=== PATIENT | female | born 1980 | race Caucasian/White ===

== ENCOUNTER 2017-04-15 10:35 | Emergency (ER) | payer OTHER ==
[2017-04-15 14:09] VITALS: BP 131/77
--- NOTE | 2017-04-15 15:16 | UC ---
Miko Tejada Stephanie, scribed for Jing Lock MD on 04/15/17 at 1339 . FLU HPI - HPI Summary HPI Summary: The pt is a 37 y/o F presenting to with decreased energy that began on 2017. Symptoms include productive cough (04/14/17), body aches, WINTER, fever, subjective chills and sore throat. The pt denies getting her influenza vaccine this season. Has not smoked over the last couple days. No GI issues perse. No rash. Works with the public. - History of Current Complaint Chief Complaint: UCGeneralIllness Stated Complaint: CONGESTION BODYACHES COUGH Time Seen by Provider: 04/15/17 13:26 Hx Obtained From: Patient Hx Last Menstrual Period: 04/12/17 ?: No Onset/Duration: Gradual Onset, Lasting Days - 2, Still Present Severity Currently: Moderate Pain Intensity: 4 Pain Scale Used: 0-10 Numeric Associated Signs & Symptoms: Positive: Fever, Myalgia, Cough, Sore Throat, Headache - Allergy/Home Medications Allergies/Adverse Reactions: Allergies Allergy/AdvReac Type Severity Reaction Status Date / Time No Known Allergies Allergy Verified 04/15/17 11:31 Home Medications: Home Medications Ibuprofen [Ibuprofen 200 MG] 800 mg PO Q8HR PRN 04/15/17 [History Confirmed 05/01] PMH/Surg Hx/FS Hx/Imm Hx Previously Healthy: Yes - Denies past medical hx. - Surgical History Surgical History: Yes Surgery Procedure, Year, and Place: Tubal Ligation - Family History Known Family History: Positive: Diabetes - Social History Occupation: Employed Part-time Lives: Alone Alcohol Use: None Substance Use Type: None Smoking Status (MU): Heavy Every Day Tobacco Smoker Amount Used/How Often: 1ppd Household Exposure Type: Cigarettes Review of Systems Constitutional: Fatigue, Other - see HPI Skin: Negative Eyes: Negative ENT: Sore Throat, Nasal Discharge, Sinus Congestion, Other - see HPIs Respiratory: Other - ee HPI Cardiovascular: Negative Gastrointestinal: Negative Genitourinary: Negative Motor: Negative Neurovascular: Negative Musculoskeletal: Other: - see HPI Neurological: Other - see HPI Psychological: Negative Is Patient Immunocompromised?: No All Other Systems Reviewed And Are Negative: Yes Physical Exam Triage Information Reviewed: Yes Appearance: Well-Nourished - sitting up. Looks tired. Non-toxic general appearance. Vital Signs: Initial Vital Signs Temp 100.9 F 04/15/17 11:27 Pulse 98 04/15/17 11:27 Resp 18 04/15/17 11:27 BP 152/86 04/15/17 11:27 Pulse Ox 100 04/15/17 11:27 Vital Signs Reviewed: Yes - Additional Comments Appearance: Well-Nourished Eye Exam: Normal ENT Exam: white dot in the back of throat R side Neck: Normal, No adenopathy appreciated Respiratory Exam: no dyspnea, no tachypnea, normal respiratory rate, Rhonchorous cough. Expiratory wheezes upon stress. Chest non-tender, Lungs clear, Normal breath sounds, No respiratory distress, No accessory muscle use Cardiovascular Exam: Normal Cardiovascular: Heart rate regular, good general skin color, good capillary refill Abdominal Exam: Normal Abdomen Description: Nontender, No Organomegaly, Soft Bowel Sounds: Present Musculoskeletal Exam: Normal Musculoskeletal: Strength Intact Neurological Exam: Normal: nonfocal, grossly intact Psychological Exam: Normal: conversing easily and appropriately Skin Exam: Normal: no visible or reported rash Flu Course/Dx - Course Course Of Treatment: Influenza a/b neg. However, I am highly suspicous of influenza / influenza-like illness, em given early sx and exposure to the public during high flu season. As such, will start Tamiflu. Also rx for albuterol. D/w pt coa / tx plan. Questions as posed answered to the best of my ability. Advised to seek medical attention for worse or new problems. - Differential Dx/Diagnosis Provider Diagnoses: Wheezing. Bronchitis, suspicious influenza Discharge - Discharge Plan Condition: Stable Disposition: HOME Prescriptions: Albuterol HFA INHALER* [Ventolin HFA Inhaler*] 1 - 2 puff INH Q4H PRN #1 mdi PRN Reason: Wheezing Oseltamivir CAP* [Tamiflu CAP*] 75 mg PO BID #10 cap Patient Education Materials: Upper Respiratory Infection (ED), Bronchospasm (ED ) Forms: *Work Release Referrals: Linsey Sabillon MD [Primary Care Provider] - 2 Weeks Additional Instructions: Please follow up with your primary care provider in 1-2 weeks. Seek medical attention for worse or new problems in the meantime. Symptoms highly suspicious for influenza-like illness. (Nasal swab negative) The documentation as recorded by the scribe, Imko,Neeru accurately reflects the service I personally performed and the decisions made by me, Jing Lock MD.
== END 2017-04-15 14:30 | disposition home or self-care (01) ==
LOC: UCEAST 10:35
DX: J40 Bronchitis, not specified as acute or chronic (principal); R06.2 Wheezing; F17.210 Nicotine dependence, cigarettes, uncomplicated
CPT/HCPCS: 87502; 99212; G0463